=== PATIENT | male | born 1980 | race Caucasian/White ===

== ENCOUNTER 2018-02-08 23:23 | Emergency (ER) | payer OTHER ==
[~2018-02-08] VITALS: Ht 177.8 cm; Wt 106.6 kg
[2018-02-08 23:23] VITALS: BP 126/97
[2018-02-08] MEDS ORDERED: DOXYCYCLINE HY100 M3 PO (23:35)
[2018-02-08] MEDS ORDERED: SEPTDS PO (23:35)
== END 2018-02-08 23:57 | disposition home or self-care (01) ==
LOC: ED 23:23
DX: S80.261A Insect bite (nonvenomous), right knee, initial encounter (principal); L02.415 Cutaneous abscess of right lower limb; W57.XXXA Bitten or stung by nonvenomous insect and other nonvenomous arthropods, initial encounter; Y93.89 Activity, other specified; Y92.89 Other specified places as the place of occurrence of the external cause; Y99.8 Other external cause status

== ENCOUNTER → 2018-04-06 | Outpatient (CLI) | payer OTHER ==
[~2018-04-06] MED LIST: DOXYCYCLINE HY100 M3 PO; MEDROL DOSEPAK4 MG PO; SEPTDS PO
[2018-04-06 12:05] LABS: URINE AMPHETAMINES < 1000 (1000ng/ml); URINE BARBITURATES < 200 (200ng/ml); URINE BENZODIAZEPINES < 200 (200ng/ml); URINE CANNABINOIDS (THC) > 50 (50ng/ml); URINE COCAINE < 300 (300ng/ml); URINE METHADONE < 300 (300ng/ml); URINE OPIATES < 300 (300ng/ml)
[2018-04-06 12:09] LABS: URINE PHENCYCLIDINE < 25 (25ng/ml)
== END | disposition home or self-care (01) ==
PROVIDERS: Psychiatry & Neurology Psychiatry
DX: F41.0 Panic disorder [episodic paroxysmal anxiety] (principal)

== ENCOUNTER 2018-10-16 10:06 | Emergency (ER) | payer OTHER ==
[~2018-10-16] VITALS: Ht 177.8 cm; Wt 104.3 kg
[~2018-10-16 10:06] MED LIST changes: -MEDROL DOSEPAK4 MG PO
[2018-10-16 10:08] VITALS: BP 134/81
[2018-10-16] MEDS ORDERED: MEDROL DOSEPAK4 MG PO (10:28)
== END 2018-10-16 10:44 | disposition home or self-care (01) ==
LOC: ED 10:06
DX: L23.7 Allergic contact dermatitis due to plants, except food (principal); Z79.2 Long term (current) use of antibiotics

== ENCOUNTER → 2019-01-24 | Outpatient (CLI) | payer OTHER ==
[~2019-01-24] MED LIST changes: +MEDROL DOSEPAK4 MG PO
[2019-01-24 13:15] LABS: BASO # 0.1 10*3/uL (0.0-0.1); BASO % 0.8 % (0.0-1.0); EOS # 0.3 10*3/uL (0.0-0.4); EOS % 3.2 % (1.0-4.0); HEMATOCRIT 50.6 % (42.0-52.0); HEMOGLOBIN 16.9 g/dl (14.0-18.0); LYMPH # 2.3 10*3/uL (1.3-4.4); LYMPH % 25.3 % (27.0-41.0); MEAN CELL VOLUME 99.4 fl (80.0-94.0); MEAN CORPUSCULAR HGB 33.2 pg (27.0-31.0); MEAN CORPUSCULAR HGB CONC 33.4 g/dl (33.0-37.0); MEAN PLATELET VOLUME 9.7 fl (9.6-12.3); MONO # 0.9 10*3/uL (0.1-1.0); MONO % 9.4 % (3.0-9.0); NEUT # 5.6 10*3/uL (2.3-7.9); PLATELET COUNT AUTOMATED 254 10*3/uL (130-400); RED BLOOD COUNT 5.09 10*6/uL (4.50-5.90); RED CELL DISTRI WIDTH 13.7 % (0-14.5); WHITE BLOOD COUNT 9.2 10*3/uL (4.8-10.8)
[2019-01-24 13:40] LABS: ALBUMIN 3.4 gm/dl (3.1-4.5); ALKALINE PHOSPHATASE 64 U/L (45-117); BUN 16 mg/dl (7-24); CHLORIDE 108 mmol/L (98-107); CHOLESTEROL 153 mg/dL (<200); CREATININE 0.75 mg/dL (0.70-1.30); FREE T4 0.85 ng/dl (0.76-1.46); HDL CHOLESTEROL 32 mg/dl (40-60); LDL CHOLESTEROL 63 mg/dL (9-159); POTASSIUM 3.9 mmol/L (3.5-5.1); SGOT/AST 22 IU/L (3-35); SGPT/ALT 53 U/L (12-78); SODIUM 138 mmol/L (136-145); TRIGLYCERIDES 291 mg/dl (<150); VLDL CHOLESTEROL 58 mg/dL (6-40)
== END | disposition home or self-care (01) ==
LOC: LAB 12:38
PROVIDERS: Nurse Practitioner Family
DX: I10 Essential (primary) hypertension (principal); Z83.3 Family history of diabetes mellitus

== ENCOUNTER 2020-03-03 19:24 | Emergency (ER) | payer OTHER ==
[~2020-03-03] VITALS: Ht 177.8 cm; Wt 90.7 kg
[2020-03-03 19:27] VITALS: BP 117/78
[2020-03-03 20:21] LABS: BASO % 0.3 % (0.0-1.0); EOS # 0.3 10*3/uL (0.0-0.4); EOS % 2.3 % (1.0-4.0); HEMATOCRIT 48.6 % (42.0-52.0); LYMPH # 1.1 10*3/uL (1.3-4.4); LYMPH % 8.9 % (27.0-41.0); MEAN CELL VOLUME 97.8 fl (80.0-94.0); MEAN CORPUSCULAR HGB 32.6 pg (27.0-31.0); MEAN CORPUSCULAR HGB CONC 33.3 g/dl (33.0-37.0); MEAN PLATELET VOLUME 9.6 fl (9.6-12.3); MONO # 0.7 10*3/uL (0.1-1.0); MONO % 5.9 % (3.0-9.0); NEUT # 10.1 10*3/uL (2.3-7.9); NEUT % 82.2 % (47.0-73.0); PLATELET COUNT AUTOMATED 242 10*3/uL (130-400); RED BLOOD COUNT 4.97 10*6/uL (4.50-5.90); RED CELL DISTRI WIDTH 13.3 % (0-14.5); WHITE BLOOD COUNT 12.3 10*3/uL (4.8-10.8)
[2020-03-03 20:40] LABS: ALBUMIN 3.2 gm/dl (3.1-4.5); ALKALINE PHOSPHATASE 70 U/L (45-117); BUN 11 mg/dl (7-24); CHLORIDE 106 mmol/L (98-107); CREATININE 0.98 mg/dL (0.70-1.30); SGOT/AST 24 IU/L (3-35); SGPT/ALT 42 U/L (12-78); SODIUM 139 mmol/L (136-145); TOTAL PROTEIN 6.4 gm/dL (6.4-8.2)
[2020-03-03 20:42] LABS: TROPONIN I < 0.015 ng/ml (<0.045)
== END 2020-03-03 23:41 | disposition home or self-care (01) ==
LOC: ED 19:24
PROVIDERS: Emergency Medicine
DX: T40.1X1A Poisoning by heroin, accidental (unintentional), initial encounter (principal); R11.0 Nausea; F17.200 Nicotine dependence, unspecified, uncomplicated; Y92.89 Other specified places as the place of occurrence of the external cause

== ENCOUNTER 2020-03-05 10:36 | Inpatient (IN) | payer OTHER ==
[~2020-03-05] VITALS: Ht 177.8 cm; Wt 96.2 kg
[2020-03-05 10:49] VITALS: BP 133/96
[2020-03-05] MEDS ORDERED: XANAX2 M1 PO (11:21)
[2020-03-05] MEDS ORDERED: ADDERALL 30 MG30 MG PO (11:22)
[2020-03-05] MEDS ORDERED: GABAPENTIN800 MG PO (11:22)
[2020-03-05] MEDS ORDERED: IBU800 MG PO (11:24)
[2020-03-05 11:31] LABS: BASO # 0.1 10*3/uL (0.0-0.1); BASO % 0.8 % (0.0-1.0); EOS # 0.5 10*3/uL (0.0-0.4); EOS % 6.7 % (1.0-4.0); HEMATOCRIT 47.1 % (42.0-52.0); LYMPH # 2.4 10*3/uL (1.3-4.4); LYMPH % 33.2 % (27.0-41.0); MEAN CELL VOLUME 96.1 fl (80.0-94.0); MEAN CORPUSCULAR HGB 32.7 pg (27.0-31.0); MEAN PLATELET VOLUME 9.6 fl (9.6-12.3); MONO # 0.7 10*3/uL (0.1-1.0); MONO % 9.1 % (3.0-9.0); NEUT # 3.7 10*3/uL (2.3-7.9); NEUT % 50.1 % (47.0-73.0); PLATELET COUNT AUTOMATED 273 10*3/uL (130-400); RED CELL DISTRI WIDTH 13.3 % (0-14.5); WHITE BLOOD COUNT 7.4 10*3/uL (4.8-10.8)
[2020-03-05 11:42] LABS: ACT PARTIAL THROMBO TIME 29.3 SECONDS (20.0-32.1); INTERNATIONAL NORM RATIO 0.9 (2.0-3.5)
[2020-03-05 11:46] LABS: ALBUMIN 3.4 gm/dl (3.1-4.5); ALKALINE PHOSPHATASE 67 U/L (45-117); BUN 8 mg/dl (7-24); CHLORIDE 107 mmol/L (98-107); CREATININE 0.64 mg/dL (0.70-1.30); ETHYL ALCOHOL < 3.0 mg/dl (<3); POTASSIUM 3.6 mmol/L (3.5-5.1); SGOT/AST 26 IU/L (3-35); SGPT/ALT 40 U/L (12-78); SODIUM 140 mmol/L (136-145)
[2020-03-05 12:02] LABS: URINE AMPHETAMINES > 1000 (1000ng/ml); URINE BARBITURATES < 200 (200ng/ml); URINE BENZODIAZEPINES > 200 (200ng/ml); URINE CANNABINOIDS (THC) > 50 (50ng/ml); URINE COCAINE < 300 (300ng/ml); URINE METHADONE < 300 (300ng/ml); URINE OPIATES < 300 (300ng/ml); URINE PHENCYCLIDINE < 25 (25ng/ml)
--- NOTE | 2020-03-05 14:19 | NUR ---
bethany here from [facility] to evaluate pt.
--- NOTE | 2020-03-05 14:27 | NUR ---
A RUNNING TRAY WAS CALLED AND ORDERED FOR THE PATIENT.
--- NOTE | 2020-03-05 16:24 | NUR ---
[facility] STAFF IN TO SEE PATIENT. PATIENT MEETS [facility]. PATIENT IS WANTING TO FOLLOW UP WITH [facility] IN [place] FOR OUTPATIENT TREATMENT FOR HIS AFTERCARE PLAN. AALIYAH MONTERO B.A. KITCHEN SUPERVISOR
--- NOTE | 2020-03-05 17:10 | NUR ---
A 39, admitted to 5E, under the services of ZACK Pena DO with a diagnosis of OPIATE WITHDRAWAL. Chief complaint is WITHDRAWAL. Patient arrived via wheel chair from ER. Monitor applied. Initial assessment completed. Vital signs taken and recorded. ZACK PENA DO notified of admission to the unit. Orders received. See assessment for past medical history, medications and allergies. Patient and/or family oriented to unit. [facility] visitation policy reviewed. Clothing/patient valuable form completed. LUIS ENRIQUE DELGADO
[2020-03-05] MEDS ORDERED: PRILOSEC20 M1 PO (17:20)
--- NOTE | 2020-03-05 19:49 | NUR ---
PATIENT GIVEN NICOTROL INHALER FOR SMOKING.
[2020-03-05 20:00] VITALS: BP 133/90
[2020-03-06] VITALS: BP 128/93
[2020-03-06 08:00] VITALS: BP 140/93
--- NOTE | 2020-03-06 08:35 | NUR ---
PT RESTING IN BED, ANXIOUS AND RESTLESS IN BED. REFUSED ANY MEDICATION FOR THIS. C/O RIGHT ARM PAIN, RATES PAIN 8 ON PAIN SCALE 0-10. MEDICATED WITH MOTRIN PO PER PRN ORDER, SEE EMAR. CALL LIGHT IN REACH. SEE SHIFT ASSESMENT.
--- NOTE | 2020-03-06 09:11 | NUR ---
CALLED DR. CASILLAS REGARDING PT REQUESTING NEURONTIN HIS HOME MEDICATION.
--- NOTE | 2020-03-06 09:30 | NUR ---
RESTING IN BED. STATES MEDICATION HELPED A LITTLE. Patient resting. Responding to scheduled medications with fewer complaints of pain and anxiety. CALL LIGHT IN REACH.
[2020-03-06 12:00] VITALS: BP 145/84
--- NOTE | 2020-03-06 12:10 | NUR ---
[facility] STAFF IN TO SEE PATIENT. PATIENT WILL BE FOLLOWING UP WITH [facility] FOR HIS AFTERCARE PLAN. PATIENT REPORTS THAT THEY WILL FINISH OFF HIS BENZO TAPER. AALIYAH MONTERO B.A. SCALING MACHINE OPERATOR
--- NOTE | 2020-03-06 12:40 | NUR ---
Patient resting. Responding to scheduled medications with fewer complaints of pain and anxiety. CALL LIGHT IN REACH.
[2020-03-06 16:00] VITALS: BP 153/88
--- NOTE | 2020-03-06 16:20 | NUR ---
RESTING IN BED. TOLERATED ROUTINE MED WITH MNO PROBLEM. NO C/O AT THIS TIME. CALL LIGHT IN REACH. SEE SHIFT ASSESSMENT.
[2020-03-06 20:00] VITALS: BP 123/89
--- NOTE | 2020-03-06 21:29 | NUR ---
PT TOLERATED ROUTINE SUBUTEX FOR WITHDRAWAL SYMPTOMS. NO C/O AT THIS TIME. CALL LIGHT INREACH.
[2020-03-07] VITALS: BP 115/78
--- NOTE | 2020-03-07 00:15 | NUR ---
PT RESTING IN BED, SNORING. PT AROUSES FOR ASSESSMENT. PT DENIES ANY NEEDS AT THIS TIME.
[2020-03-07 08:00] VITALS: BP 105/75
[2020-03-07 12:00] VITALS: BP 120/83
[2020-03-07 16:00] VITALS: BP 115/75
--- NOTE | 2020-03-07 16:03 | NUR ---
[facility] IN TO SEE PATIENT. PATIENT'S AFTERCARE REMAINS THE SAME. PATIENT AGREES AND UNDERSTANDS HIS AFTERCARE PLAN. PATIENT REPORTS THAT HE HAS TRANSPORTATION HOME. AALIYAH MONTERO B.A. COUNTRY PRINTER
--- NOTE | 2020-03-07 19:31 | NUR ---
NO VOICED COMPLAINTS T/O SHIFT. CALL LIGHT WITHIN REACH.
[2020-03-07 20:00] VITALS: BP 115/67
--- NOTE | 2020-03-07 20:00 | NUR ---
PT RESTING IN BED, EMOTIONAL SUPPORT GIVEN, NO C/O VOICED
--- NOTE | 2020-03-07 23:10 | NUR ---
PT REFUSED MIDNIGHT SHARONAIUN STATES "MAKES ME TOO DROWSY" HELD PER PT REQUEST
[2020-03-08] VITALS: BP 123/67
--- NOTE | 2020-03-08 04:00 | NUR ---
PT SLEEPING RESPIRATIONS EVEN AND EASY
[2020-03-08 06:32] LABS: BASO # 0.1 10*3/uL (0.0-0.1); BASO % 0.9 % (0.0-1.0); EOS # 0.5 10*3/uL (0.0-0.4); EOS % 8.3 % (1.0-4.0); HEMATOCRIT 48.2 % (42.0-52.0); LYMPH # 2.3 10*3/uL (1.3-4.4); MEAN CELL VOLUME 98.8 fl (80.0-94.0); MEAN CORPUSCULAR HGB CONC 33.4 g/dl (33.0-37.0); MEAN PLATELET VOLUME 9.6 fl (9.6-12.3); MONO # 0.8 10*3/uL (0.1-1.0); MONO % 11.8 % (3.0-9.0); NEUT # 2.9 10*3/uL (2.3-7.9); NEUT % 43.8 % (47.0-73.0); PLATELET COUNT AUTOMATED 232 10*3/uL (130-400); RED BLOOD COUNT 4.88 10*6/uL (4.50-5.90); RED CELL DISTRI WIDTH 13.4 % (0-14.5); WHITE BLOOD COUNT 6.5 10*3/uL (4.8-10.8)
--- NOTE | 2020-03-08 06:43 | NUR ---
24 HR chart check completed.
[2020-03-08 08:00] VITALS: BP 133/81
[2020-03-08] MEDS ORDERED: MOTRIN 600 MG E4 TAB PO (09:37)
[2020-03-08] MEDS ORDERED: METHOCARBAMOL750 M1 PO (09:37)
[2020-03-08] MEDS ORDERED: DICYCLOMINE HCL20 MG PO (09:37)
[2020-03-08] MEDS ORDERED: XANAX0.5 MG PO (09:48)
--- NOTE | 2020-03-08 11:13 | NUR ---
Discharge instructions reviewed with patient/family. Patient receptive and verbalizes understanding. Follow-up care arranged. Written instructions given to patient/family. PARAM ROBLES
== END 2020-03-08 11:13 | disposition home or self-care (01) | DRG 776 ==
LOC: ED 10:36 → 5E 11:30 → EDHOLD 11:30 → 5E 14:36
PROVIDERS: Emergency Medicine; ADMIT Internal Medicine; ATTEND Internal Medicine
DX: F13.130 Sedative, hypnotic or anxiolytic abuse with withdrawal, uncomplicated (principal); F15.10 Other stimulant abuse, uncomplicated; F17.210 Nicotine dependence, cigarettes, uncomplicated; F12.10 Cannabis abuse, uncomplicated; M79.601 Pain in right arm; G89.29 Other chronic pain; Z71.6 Tobacco abuse counseling; Z82.62 Family history of osteoporosis; F41.9 Anxiety disorder, unspecified

== ENCOUNTER 2020-12-18 08:49 | Emergency (ER) | payer OTHER ==
[~2020-12-18 08:49] MED LIST changes: +ADDERALL 30 MG30 MG PO; +DICYCLOMINE HCL20 MG PO; +GABAPENTIN800 MG PO; +IBU800 MG PO; +METHOCARBAMOL750 M1 PO; +MOTRIN 600 MG E4 TAB PO; +PRILOSEC20 M1 PO; +XANAX0.5 MG PO; +XANAX2 M1 PO
[2020-12-18 09:19] VITALS: BP 132/91
== END 2020-12-18 09:30 | disposition left against medical advice (07) ==
LOC: ED 08:49
DX: R03.0 Elevated blood-pressure reading, without diagnosis of hypertension (principal); Z53.21 Procedure and treatment not carried out due to patient leaving prior to being seen by health care provider

== ENCOUNTER → 2021-09-28 | Outpatient (CLI) | payer OTHER | END | disposition home or self-care (01) | LOC: US 10:26 | PROVIDERS: ATTEND Nurse Practitioner Family | DX: I65.23 Occlusion and stenosis of bilateral carotid arteries (principal); R00.1 Bradycardia, unspecified ==

== ENCOUNTER 2022-07-01 15:13 | Emergency (ER) | payer OTHER ==
[~2022-07-01] VITALS: Wt 89.8 kg
[2022-07-01 15:37] VITALS: BP 141/100
[2022-07-01 17:28] LABS: BASO # 0.1 10*3/uL (0.0-0.1); BASO % 0.8 % (0.0-1.0); EOS # 0.2 10*3/uL (0.0-0.4); EOS % 2.5 % (1.0-4.0); HEMATOCRIT 49.5 % (42.0-52.0); LYMPH # 2.7 10*3/uL (1.3-4.4); LYMPH % 32.1 % (27.0-41.0); MEAN CELL VOLUME 92.9 fl (80.0-94.0); MEAN CORPUSCULAR HGB 32.3 pg (27.0-31.0); MEAN CORPUSCULAR HGB CONC 34.7 g/dl (33.0-37.0); MEAN PLATELET VOLUME 9.2 fl (9.6-12.3); MONO # 0.6 10*3/uL (0.1-1.0); MONO % 7.5 % (3.0-9.0); NEUT # 4.8 10*3/uL (2.3-7.9); PLATELET COUNT AUTOMATED 282 10*3/uL (130-400); RED BLOOD COUNT 5.33 10*6/uL (4.50-5.90); RED CELL DISTRI WIDTH 13.6 % (0-14.5); WHITE BLOOD COUNT 8.5 10*3/uL (4.8-10.8)
[2022-07-01 17:29] LABS: BILIRUBIN Negative (Negative); BLOOD Negative (Negative); CLARITY Clear (Clear); COLOR Yellow (Yellow); GLUCOSE Negative (Negative); KETONE 1+ (Negative); LEUKO ESTERASE Negative (Negative); NITRITE Negative (Negative)
[2022-07-01 17:43] LABS: ALKALINE PHOSPHATASE 61 U/L (46-116); BUN 8 mg/dl (9-23); CHLORIDE 104 mmol/L (98-107); LIPASE 48 U/L (12-53); POTASSIUM 4.2 mmol/L (3.4-5.1); SGPT/ALT 24 U/L (10-49); TOTAL PROTEIN 6.9 gm/dL (6.0-8.0)
[2022-07-01 18:02] LABS: ACT PARTIAL THROMBO TIME 35.9 SECONDS (20.0-32.1)
[2022-07-01 18:09] LABS: RBC 0-2 rbc/hpf (0-2); WBC 0-2 wbc/hpf (0-5)
== END 2022-07-01 18:41 | disposition left against medical advice (07) ==
LOC: ED 15:13
PROVIDERS: Emergency Medicine
DX: R10.31 Right lower quadrant pain (principal); R10.33 Periumbilical pain; F17.200 Nicotine dependence, unspecified, uncomplicated